=== PATIENT | male | born 1985 | race African-American/Black ===

== ENCOUNTER 2023-12-15 21:15 | Emergency (ER) | payer OTHER ==
[~2023-12-15] VITALS: Ht 172.7 cm; Wt 81.6 kg
[2023-12-15 21:31] VITALS: BP 131/72; TEMP 98.1; O2SAT 99
[2023-12-15] MEDS ORDERED: IBUP-1957 PO (21:33)
[2023-12-15] MEDS: IBUPROFEN 400 MG TABLET PO ONE (21:45)
[2023-12-15] MEDS ORDERED: CEPH-570 PO (22:02)
== END 2023-12-15 22:04 | disposition home or self-care (01) ==
LOC: ER 21:20
DX: K08.89 Other specified disorders of teeth and supporting structures (principal)